=== PATIENT | male | born 1945 | race Caucasian/White ===

== ENCOUNTER 2022-04-25 22:27 | Observation (INO) | payer SELFPAY ==
[2022-04-25 22:52] VITALS: BMI 21.8
[2022-04-25] MEDS ORDERED: ALBUTEROL SO4 2.5/IPRATROPIUM 0.5 INH SOL 3 ML VIAL.NEB. NEB ONE ×2 (23:03→23:08)
[2022-04-26 00:23] LABS: BASO % 0.7 % (0-2.0); EOS % 6.2 % (0-4.5); HEMATOCRIT 26.6 % (35.4-49); HEMOGLOBIN 8.9 GM/dL (11.7-16.9); LYMPH % 14.2 % (8-40); MCH 32.9 pg (25.7-33.7); MCHC 33.6 g/dl (32.0-35.9); MEAN PLT VOLUME 9.7 fl (7.5-11.1); MONO % 8.4 % (3.8-10.2); NEUT % 70.5 % (42.8-82.8); PLATELET COUNT 61 10^3/uL (134-434); RBC 2.71 M/mm3 (4.00-5.60); RDW 13.9 % (11.9-15.9); WHITE BLOOD COUNT 4.1 K/mm3 (4.0-10.0)
[2022-04-26 00:41] LABS: BLOOD UREA NITROGEN 39.7 mg/dL (7-18); CALCIUM 8.2 mg/dL (8.5-10.1)
[2022-04-26 00:42] LABS: ALBUMIN 2.6 g/dl (3.4-5.0)
[2022-04-26 00:44] LABS: CREATININE 1.8 mg/dL (0.55-1.3)
[2022-04-26 00:47] LABS: BILIRUBIN,TOTAL 2.4 mg/dL (0.2-1); TOT PROT 6.4 g/dl (6.4-8.2)
[2022-04-26 02:21] LABS: ACTIVATED PTT 35.2 SECONDS (25.2-36.5)
[2022-04-26 02:24] LABS: INR 1.16 (0.83-1.09); PROTHROMBIN TIME (PATIENT) 13.4 SEC (9.7-13.0)
[2022-04-26 07:15] VITALS: BP 104/93; PULSE 64; RESP 18; TEMP 98.4
[2022-04-26 11:10] LABS: VENOUS BASE EXCESS -0.7 mmol/L (-2-2); VENOUS O2 SATURATION 85.7 % (70-80); VENOUS PCO2 39.5 mmHg (38-52); VENOUS PH 7.401 (7.310-7.410)
[2022-04-26 12:09] LABS: MAGNESIUM 2.2 mg/dL (1.8-2.4)
[2022-04-26 12:13] LABS: PHOSPHOROUS 4.3 mg/dL (2.5-4.9)
[2022-04-26] MEDS ORDERED: ALBUTEROL SO4 HFA INHALER IH PRN (12:14)
[2022-04-26] MEDS ORDERED: ALBUTEROL SO4 2.5/IPRATROPIUM 0.5 INH SOL 3 ML VIAL.NEB. NEB PRN (12:15)
[2022-04-26 12:16] LABS: N-TERMINAL BNP 1025.1 pg/ml (5-450)
[2022-04-26] MEDS ORDERED: ALBUTEROL SO4 2.5/IPRATROPIUM 0.5 INH SOL 3 ML VIAL.NEB. NEB ONE (12:28)
[2022-04-26] MEDS ORDERED: methylPREDNISolone NA SUCC 40 MG/1 ML VIAL IVPUSH SCH (12:30)
[2022-04-26] MEDS ORDERED: SODIUM CHLORIDE 1,000 ML IV SCH (12:30)
[2022-04-26 13:38] LABS: BILIRUBIN,DIRECT 0.8 mg/dL (0.0-0.2)
== END 2022-04-26 13:45 | disposition left against medical advice (07) ==
LOC: JER 22:27 → JERBED 04-26 04:47
PROVIDERS: ADMIT Internal Medicine; ATTEND Internal Medicine
PROC: 3E0F7GC Introduction of Other Therapeutic Substance into Respiratory Tract, Via Natural or Artificial Opening (ICD-10-PCS; principal; 2022-04-26)
PROC: 3E0F7GC Introduction of Other Therapeutic Substance into Respiratory Tract, Via Natural or Artificial Opening (ICD-10-PCS; 2022-04-26)
DX: N17.9 Acute kidney failure, unspecified (principal); J45.909 Unspecified asthma, uncomplicated; R79.9 Abnormal finding of blood chemistry, unspecified; R17 Unspecified jaundice; I10 Essential (primary) hypertension; Z85.05 Personal history of malignant neoplasm of liver; Z85.46 Personal history of malignant neoplasm of prostate; R06.02 Shortness of breath
CPT/HCPCS: 0241U-QW; 36415; 71045-TC-FY; 71250-TC; 80053; 82248; 82803; 83615; 83735; 83880; 84100; 84484; 85025; 85610; 85730; 93005; 93010; 99285-25; G0378